=== PATIENT | male | born 1950 | race Caucasian/White ===

== ENCOUNTER 2017-04-27 10:35 | Outpatient (CLI) | payer MEDICARE ==
--- NOTE | 2017-04-27 12:01 | RAD ---
TWO VIEWS LUMBAR SPINE: Date: 04-27-17 Comparison: 02-13-16 History: Low back pain, evaluate lumbar spine following surgery. FINDINGS: There has been interval placement of pedicle screws bilaterally at L4 and L5. There is evidence of la minectomy at L4-5 level. There is a moderate degree of levoscoliosis of the lumbar spine. There is prominent disc space narrow ing with degenerative endplate change and right lateral osteophyte formation at L2-3. L4 and L5 pedic le screws are noted bilaterally with vertically oriented interlocking rods. No evidence for hardware failure. At L2-3, L3-4, L4-5, and L5-S1 there is disc space narrowing with degenerative endplate change and an terior osteophyte formation. There is 5-6 mm of anterolisthesis of L4 on L5. IMPRESSION: Post-operative and degenerative changes within the lumbar spine as detailed above. POS: RADHA
== END 2017-04-27 10:36 | disposition home or self-care (01) ==
LOC: TBSIIMAG 10:35
PROVIDERS: ATTEND Neurological Surgery
DX: M54.5 Low back pain (principal); M47.816 Spondylosis without myelopathy or radiculopathy, lumbar region; M41.86 Other forms of scoliosis, lumbar region; Z98.890 Other specified postprocedural states
CPT/HCPCS: 72100

== ENCOUNTER 2017-07-22 08:59 | Outpatient (CLI) | payer MEDICARE ==
--- NOTE | 2017-07-22 11:49 | CT ---
CT LUMBAR SPINE WITHOUT CONTRAST: INDICATIONS: Lumbar pain. Recent lumbar surgery. COMPARISON: CT lumbar spine from 02/13/2016. TECHNIQUE: Multiple axial tomograms obtained of the lumbar spine with multiplanar reconstruction. FINDINGS: Severe degenerative changes of the lumbar spine are noted. Severe degenerative of the lumbar spine a re noted. Severe degenerative disk changes are seen below L2 with disk space gas consistent with vac uum phenomenon and loss of disk space. Prominent spurring. Endplate sclerosis. Postoperative changes have occurred since the prior CT. There are now pedicle screws and rods in elvin ce at L4 and L5 since the prior study. Mild anterolisthesis of L4 on L5 is present and not significa ntly changed from the prior exam. Posterior laminectomy changes at this level. At L1-L2, broad-based disk bulge combined with facet hypertrophy results in moderate central canal st enosis. At L2-L3, loss of disk space. Posterior hypertrophic spurring and disk bulge extends into the spinal canal and compresses the thecal sac. Facet hypertrophy is prominent. Moderate to severe central ca nal stenosis is seen at this level. Bilateral foraminal stenosis. At L3-L4, loss of disk space. Posterior disk bulge and spurring extend into the spinal canal, compre ssing the thecal sac. Facet hypertrophy. Moderate to severe central canal stenosis. Bilateral fora spring stenosis, primarily due to hypertrophic spurring. Pedicle screws at L4 appear adequately positioned. Posterior laminectomy change. At L4-L5, anterolisthesis, as described above. There is an osteophyte projecting from the posterior L4 vertebra, just above the L4-L5 disk, which pr ojects into the spinal canal and abuts the thecal sac. This osteophyte measures approximately 1.2 cm in length, in the sagittal plane. This osteophyte was present on the prior study. There is disk bu lge associated with this osteophyte. In addition, there is a hypertrophic osteophyte projecting from the right facet, into the spinal canal, posteriorly and on the right. These changes combine to comp ress the thecal sac, resulting in moderate central canal stenosis. There is left foraminal stenosis, secondary to hypertrophic change. Pedicle screws at L5 appear adequately positioned. At the L5-S1 level, there are degenerative disk changes. Diffuse disk bulge. Facet hypertrophy. Th ere is increased density in the left foramina, which could represent disk protrusion into the left fo ramina. The broad-based bulge at this level appears to displace both traversing S1 nerve roots, and there may be contact with the exiting left L5 nerve root, due to left foraminal disk. IMPRESSION: 1. Postoperative changes with pedicle screws at L4-L5. 2. Degenerative disk changes at all levels with spinal canal and foraminal stenosis, as described ab jamey. POS: CUATE
== END 2017-07-22 09:00 | disposition home or self-care (01) ==
LOC: TBSIIMAG 08:59
PROVIDERS: ATTEND Neurological Surgery
DX: M54.5 Low back pain (principal); M47.896 Other spondylosis, lumbar region; M99.83 Other biomechanical lesions of lumbar region; Z98.1 Arthrodesis status
CPT/HCPCS: 72131

== ENCOUNTER 2017-12-13 07:53 | Day surgery (SDC) | payer MEDICARE ==
[2017-12-10 15:58] VITALS: BMI 31.0
--- NOTE | 2017-12-12 20:53 | HP ---
HISTORY OF PRESENT ILLNESS: Mr. Guzman is known to us from previous lumbar decompression and fusion back in the end of last year, 2017. He returns now with right-sided groin, hip, and anterior thigh p ains. He has had his hip evaluated with no significant pathology found and then now has a new MRI fr om the [facility], which reveals severe foraminal stenosis to the right at both the L2 and L3 foramen that would match his symptoms. He has had this treated conservatively, but would like to pro ceed with surgery if possible. PAST MEDICAL HISTORY: Significant for depression, melanoma. MEDICATIONS: Celebrex, trazodone, Adderall. ALLERGIES: No known drug allergies. PAST SURGICAL HISTORY: Lumbar decompression and fusion, and ACDF. PHYSICAL EXAMINATION: GENERAL: The patient is alert and oriented x3. NEUROLOGIC: Gait is significantly antalgic. Lower extremity motor exam is normal. Oscar's test i s negative bilaterally. Straight leg raise is negative bilaterally. ASSESSMENT: Lumbar radiculopathy. PLAN: Dr. Poon met with the patient, reviewed imaging, and advocated for an L2 through L4 decompres vicky on the right. He explained to the patient the risks, benefits, and alternatives of the procedur e. The patient expressed understanding and would like to move forward with surgery as discussed. I do believe the patient is mentally competent and capable of making medical decisions for himself and we will move forward with surgery as planned. Josue Duran PA-C dictating for Dr. Poon.
[2017-12-13] MEDS ORDERED: Bupivacaine HCl 0.5%/Epinephrine 1:200,000/PF 30 ml Vial ONE (10:08)
[2017-12-13] MEDS ORDERED: Fentanyl 250 MCG/5 ML VIAL ONE (10:29)
[2017-12-13] MEDS ORDERED: CEFAZOLIN/Water 2 GM/20 ML SYRINGE ONE ×2 (10:33→16:27)
--- NOTE | 2017-12-13 12:04 | OP ---
DATE OF PROCEDURE: 12/13/2017 SURGEON: Nemesio Poon M.D. SLD INCLUSION TEACHER: Josue Duran PA-C. INDICATION: Pain. DIAGNOSIS: Lumbar radiculopathy and lumbar stenosis. PROCEDURE: Right L2-3, right L3-4 hemilaminectomy, medial facetectomy, decompression. ANESTHESIA: General. TECHNIQUE: The patient was brought into the operating room and a placed under general anesthesia. H e was flipped from a supine or prone position on the operating room table. A linear incision was elvin nned over the upper to mid lumbar segments. After prepping and draping and after an appropriate oper ative pause, the incision was created. The soft tissues were swept away from midline on the right. Self-retaining retractors were placed in the wound for optimal exposure. After confirming the approp riate level with C-arm fluoroscopy, a high-speed cutting drill bit was used for hemilaminectomy kenroy ing L2-L4. Laminectomy was completed using a drill as well as 2, 3 and 4-mm Kerrisons. At the compl etion of the procedure, I could palpate the L2, L3, and L4 pedicles in the lateral recesses were well decompressed in this segment. The wound was irrigated. Hemostasis was maintained throughout. The wound was then closed in anatomic layers and a pressure dressing was applied. There were no known pr ocedural complications.
[2017-12-13] MEDS ORDERED: Tamsulosin HCl 0.4 MG CAP ONE (12:47)
[2017-12-13] MEDS ORDERED: Fentanyl 100 MCG/2 ML VIAL ONE (12:51)
== END 2017-12-13 17:21 | disposition home or self-care (01) ==
LOC: SDC 07:53
PROVIDERS: ATTEND Neurological Surgery
PROC: 01NB0ZZ Release Lumbar Nerve, Open Approach (ICD-10-PCS; principal; 2017-12-13)
DX: M54.16 Radiculopathy, lumbar region (principal); M48.061 Spinal stenosis, lumbar region without neurogenic claudication; F32.9 Major depressive disorder, single episode, unspecified; Z79.899 Other long term (current) drug therapy; Z98.1 Arthrodesis status
CPT/HCPCS: 76001; 96374; 96375; J0131; J0670; J3010

== ENCOUNTER 2018-01-27 09:05 | Outpatient (CLI) | payer MEDICARE ==
--- NOTE | 2018-01-27 10:40 | CT ---
CT LUMBAR SPINE: Multiple axial tomograms were obtained through the lumbar spine with multiplanar reconstruction. INDICATION: Lumbar radiculopathy. Low back pain. Exam is also performed in followup to the MRI lumbar spine of 08/27/2017 which described edema in the pedicles at L3 bilaterally suggesting stress reaction and edema. CT was recommended to assess for a pars fracture. FINDINGS: Vertebral body height is maintained. Severe degenerative disk and end plate changes are present at L 2-3, L3-4, L4-5, and L5-S1. Pedicle screws at L4-5 are noted as described on MRI exam. At L1-2, broad-based bulge. Facet and ligamentous hypertrophy. Moderate central canal stenosis. Di ffuse disk bulge extends into the foramen on both sides at this level. At L2-3, severe degenerative disk changes with end plate sclerosis. Disk bulge with posterior osteop hytes at the L2-3 disk. These changes impinge on the thecal sac. Facet hypertrophy. Laminectomy ch terence on the right at this level. Severe central canal stenosis. Bilateral foraminal stenosis. At the L3-4 level, posterior disk bulge and posterior osteophytes impinge on the thecal sac. There i s facet hypertrophy. Posterior laminectomy change. Moderate central canal stenosis. Bilateral fora spring stenosis. The L3 pedicles appear intact. Pedicle screws at L4 appear adequately positioned. At L4-5, there is a mild anterior listhesis. Posterior disk bulge and hypertrophic spurring impinge on the thecal sac. Facet hypertrophy. Posterior laminectomy change. Moderate central canal stenosi s. Bilateral foraminal stenosis. Pedicle screws at L5 appear adequately positioned. At L5-S1, broad-based disk bulge abuts the thecal sac and impinges on both traversing S1 nerve roots. Facet hypertrophy is prominent. Moderate central canal stenosis. Bilateral foraminal stenosis sec ondary to disk bulge and facet hypertrophy. IMPRESSION: Severe degenerative disk changes from L2 through S1 with postoperative changes from L3 through L5 as described. POS: RADHA
== END 2018-01-27 09:06 | disposition home or self-care (01) ==
LOC: TBSIIMAG 09:05
PROVIDERS: ATTEND Neurological Surgery
DX: M54.16 Radiculopathy, lumbar region (principal); M51.37 Other intervertebral disc degeneration, lumbosacral region; Z98.890 Other specified postprocedural states
CPT/HCPCS: 72131